=== PATIENT | male | born 1960 | race Two or more races ===

== ENCOUNTER 2024-02-19 04:49 | Emergency (ER) | payer MEDICAID ==
[~2024-02-19] VITALS: Ht 162.6 cm; Wt 68.2 kg
[2024-02-19 06:45] VITALS: BP 154/93; PULSE 91; RESP 17; TEMP 97.9; O2SAT 93
[2024-02-19 07:22] LABS: Basophils # (auto) 0.1 10 ^3/uL (0-0.2); Basophils % (auto) 0.8 % (0.0-2.0); Eosinophils # (auto) 0 10 ^3/uL (0-0.8); Eosinophils % (auto) 0.3 % (0.0-7.0); Hematocrit 46.8 % (41.0-53.0); Hemoglobin 15.8 g/dL (13.5-17.5); Lymphocytes # (auto) 1.1 10 ^3/uL (0.4-5.4); Lymphocytes % (auto) 9.5 % (10.0-50.0); Mean Corpuscular Hemoglobin 29.6 pg (28.0-32.0); Mean Corpuscular Hgb Conc. 33.7 g/dL (32.0-36.0); Mean Corpuscular Volume 87.8 fL (80.0-100.0); Monocytes # (auto) 0.8 10 ^3/uL (0-1.3); Monocytes % (auto) 6.8 % (0.0-12.0); Neutrophils # (auto) 9.6 10 ^3/uL (1.6-8.6); Neutrophils % (auto) 82.6 % (37.0-80.0); Platelet Count (auto) 250 10^3/uL (140-450); Red Blood Cells 5.33 10^6/uL (4.5-5.90); White Blood Cell 11.7 10^3/uL (4.4-10.8)
[2024-02-19 07:31] LABS: Chloride 110 mmol/L (98-107); Potassium 4.4 mmol/L (3.5-5.1); Sodium 138 mmol/L (136-145)
[2024-02-19 07:32] LABS: Anion Gap 3 (5-15); Calcium 9.4 mg/dL (8.7-10.4); Carbon Dioxide 25 mmol/L (20-30)
[2024-02-19 07:37] LABS: BUN/Creatinine Ratio 11.6 (10.0-20.0); Blood Urea Nitrogen 16 mg/dL (9-23); Glucose 109 mg/dL (74-106)
[2024-02-19 07:46] LABS: Urine Bacteria None Seen /hpf (None Seen)
[2024-02-19 08:07] LABS: Urine Blood 2+ /uL (Negative); Urine Clarity Clear (Clear); Urine Color Colorless (Yellow); Urine Protein, UAD Negative (Negative); Urine Specific Gravity 1.011 (1.001-1.035); Urine Urobilinogen Normal (Negative); Urine WBC 1 /hpf (0 - 3); Urine pH 6.5 (5.0-9.0)
== END 2024-02-19 08:45 | disposition home or self-care (01) ==
LOC: ER 04:49
DX: R31.9 Hematuria, unspecified (principal); R35.0 Frequency of micturition; R10.31 Right lower quadrant pain
CPT/HCPCS: 36415; 80048; 81001; 85025

== ENCOUNTER 2024-09-24 14:51 | Inpatient (IN) | payer MEDICAID ==
[~2024-09-24] VITALS: Ht 162.6 cm; Wt 68.3 kg
--- NOTE | 2024-09-24 15:11 | ED.PDOC ---
History of Present Illness HPI Comments 63M presents to the ER w/ son and daughter w/ the pt being altered. The pt's siblings state that the pt's gf stated that the pt found some PCP and it spilt all over him. The son stated that the pt has been running around the streets since 5pm yesterday. PMHx of HTN. Social Hx of being Homeless. Denies chills, fever, N/V/D, SOB, CP or no other associated symptoms, modifiers, recent injuries or sick contacts at this time. Chief Complaint: ALOC Time Seen by MD: 15:00 Reviewed Notes: Nurses Notes, Medications, Allergies Allergies: Coded Allergies: NO KNOWN ALLERGIES (Unverified , 10/13/23) Information Source: Patient Mode of Arrival: Ambulatory Severity: Moderate Timing: Hours Duration: Since onset, Hours Prehospital treatment: None Past Medical History PAST MEDICAL HISTORY: HTN Surgical History: Denies all surgeries Family History Family History: Reviewed,noncontributory to illness, Unknown Social History Smoker: Non-Smoker Alcohol: Denies ETOH Use Drugs: Marijuana, Methamphetamine, Other Lives In: Homeless Unable to Obtain due to: Altered Mental Status All Other Systems: Reviewed and Negative Physical Exam General Appearance: Moderate Distress, Normal HEENT: Normal ENT Inspection, Pharynx Normal, TMs Normal Neck: Full Range of Motion, Non-Tender, Normal, Normal Inspection Respiratory: Chest Non-Tender, Lungs Clear, No Accessory Muscle Use, No Respiratory Distress, Normal Breath Sounds Cardiovascular: No Edema, No JVD, No Murmur, No Gallop, Normal Peripheral Pulses, Regular Rate/Rhythm Breast Exam: Deferred Gastrointestinal: No Organomegaly, Non Tender, No Pulsatile Mass, Normal Bowel Sounds, Soft Genitalia: Deferred Pelvic: Deferred Rectal: Deferred Extremities: No calf tenderness, No pedal edema Musculoskeletal : Apperance: Normal Neurologic: 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 Was a procedure done?: No Differential Dx Considerations may include: Altered Electrolyte imbalance X-Ray, Labs, Meds, VS Vital Signs Date Time Temp Pulse Resp B/P (MAP) Pulse Ox O2 Delivery O2 Flow Rate FiO2 09/24/24 15:00 102.1 18 18 207/115 (145) 95 102.1 198/115 (142) Lab Test 09/24/24 15:05 Range/Units POC Glucose 121 H 70-106 mg/dl Patient disoriented. Blood pressure elevated. Has fever. Unable to get any history from the patient. He has not been taking any medication. Was given labetalol. Sepsis protocol. Establish intravenous access. Was given fluids. Was given Rocephin. Was given azithromycin. EKG reviewed does not show any acute changes. Time of 1ST Reevaluation: 15:30 Reevaluation 1ST: Unchanged Patient Education/Counseling: Diagnosis, Treatment, Prognosis Family Education/Counseling: No Family Present Departure 1 Departure Time of Disposition: 15:29 Impression: Primary Impression: Metabolic encephalopathy Additional Impression: Hypertensive emergency Disposition: ADMITTED INPATIENT Admit to: Med Surg Condition: Guarded Critical Care Note Critical Care Time?: Yes (90 min-critical care time only) Stability Stability form required: No Heart Score Heart Score: Heart Score Response (Comments) Value History Slightly Suspicious 0 EKG Normal 0 Age 45-64 1 Risk Factors 1 or 2 risk factors 1 Troponin Normal limit 0 Total 2 I personally scribed for ANGEL PRINGLE MD ([email or web address]) on 09/24/24 at 15:11. Electronically submitted by Darryl Hicks ([email or web address]). ANGEL PRINGLE MD Sep 24, 2024 15:11
--- NOTE | 2024-09-24 15:28 | DVH ---
EXAM: CT HEAD WITHOUT CONTRAST HISTORY: altered COMPARISON: CT HEAD WITHOUT CONTRAST on DOS: 10/13/23 TECHNIQUE: Axial images of the head were obtained and reformatted in coronal and sagittal planes. All CT scans at this medical facility are performed using dose modulation techniques as appropriate t o a performed exam including the following: Automated exposure control was utilized; adjustment of th e MA and/or KV according to patient size; and use of iterative reconstruction technique. CT Dose: CTDI volume is 61 mGy. Dose-length product is 1205 mGy*cm FINDINGS: There is no evidence of acute intracranial hemorrhage, mass, mass effect midline shift. There is no h ydrocephalus or extra-axial fluid collection. Ghosh-white matter differentiation is maintained. There is a retention cyst in the right maxillary sinus. The remaining visualized paranasal sinuses an d mastoid air cells are clear. The calvarium is intact. IMPRESSION: 1. No acute intracranial process. HS:Y
--- NOTE | 2024-09-24 15:33 | DVH ---
EXAM: XY CHEST PORTABLE TECHNIQUE: Single frontal chest radiograph CLINICAL HISTORY: sob COMPARISON: XY CHEST PORTABLE on DOS: 10/13/23 Findings/Impression: Frontal chest radiograph demonstrates no acute osseous or superficial soft tissue abnormalities. The trachea is midline. The cardiac silhouette and mediastinum are within normal limits. No pneumothorax, pleural effusions, or consolidations.
[2024-09-24 15:46] LABS: Basophils # (auto) 0.1 10 ^3/uL (0-0.2); Eosinophils # (auto) 0.1 10 ^3/uL (0-0.8); Eosinophils % (auto) 1.4 % (0.0-7.0); Hematocrit 49.9 % (41.0-53.0); Hemoglobin 16.7 g/dL (13.5-17.5); Lymphocytes % (auto) 20.2 % (10.0-50.0); Mean Corpuscular Hemoglobin 29.9 pg (28.0-32.0); Mean Corpuscular Hgb Conc. 33.5 g/dL (32.0-36.0); Mean Corpuscular Volume 89.1 fL (80.0-100.0); Monocytes # (auto) 0.8 10 ^3/uL (0-1.3); Neutrophils # (auto) 6.8 10 ^3/uL (1.6-8.6); Neutrophils % (auto) 69.4 % (37.0-80.0); Nucleated Red Blood Cells % 0.2 %; Platelet Count (auto) 266 10^3/uL (140-450); Red Cell Distribution Width 13.7 % (11.8-14.3); White Blood Cell 9.8 10^3/uL (4.4-10.8)
[2024-09-24 15:48] LABS: Potassium 4.5 mmol/L (3.5-5.1); Sodium 143 mmol/L (136-145)
[2024-09-24] MEDS: LORazepam 2MG/ML-1ML VIAL IM ONE (15:48)
[2024-09-24 15:49] LABS: Anion Gap 9 (5-15); Carbon Dioxide 23 mmol/L (20-31)
[2024-09-24 15:55] LABS: BUN/Creatinine Ratio 15.2 (10.0-20.0); Blood Alcohol 3.8 mg/dL (<10)
[2024-09-24 16:03] LABS: Blood Urea Nitrogen 23 mg/dL (9-23); Glucose 112 mg/dL (74-106)
[2024-09-24 16:04] LABS: Chloride 111 mmol/L (98-107)
[2024-09-24] MEDS: LORazepam 2MG/ML-1ML VIAL ONE ×2 (16:10→22:27)
[2024-09-24 17:39] LABS: Lactic Acid w/Reflex 3.1 mmol/L (0.4-2.0)
[2024-09-24] MEDS: ACETAMINOPHEN 325 MG TAB PO ONE (17:41)
[2024-09-24 17:50] VITALS: PULSE 102; RESP 20; O2SAT 95
[2024-09-24] MEDS: cefTRIAXone 1GM/50ML D5W 50 ML IV ONE (18:04)
[2024-09-24] MEDS: AZITHROMYCIN 500MG/ 250ML 250 ML IV ONE (18:05)
[2024-09-24] MEDS: LABETALOL HCL 20 MG/4 ML VL IV ONE (18:05)
[2024-09-24] MEDS: ACETAMINOPHEN IV 1000 MG/100ML (10MG/ML) IV ONE (18:05)
[2024-09-24] MEDS: SODIUM CHLORIDE 0.9% 1,000 ML IV ONE ×2 (18:06→23:03)
[2024-09-24] MEDS: SODIUM CHLORIDE 0.9% 1,000 ML IVB ONE (18:06)
[2024-09-24 21:35] LABS: Urine Bacteria None Seen /hpf (None Seen)
[2024-09-24 21:53] LABS: Urine Blood Negative /uL (Negative); Urine Clarity Clear (Clear); Urine Color Yellow (Yellow); Urine Hyaline Cast FEW /lpf (0 - 2); Urine Mucus FEW (None Seen); Urine Protein, UAD TRACE (Negative); Urine Specific Gravity 1.025 (1.001-1.035); Urine Sperm PRESENT /hpf (None Seen); Urine Squamous Epithelial Cell None Seen /hpf (<5); Urine Urobilinogen Normal (Negative); Urine WBC 1 /HPF (0-3)
[2024-09-24 22:08] LABS: Amphetamine Screen, Urine Pos (NEGATIVE); Barbiturate Scree,Urine Neg (NEGATIVE); Benzodiazephine Screen, Urine Neg (NEGATIVE); Cannabinoid Screen, Urine Neg (NEGATIVE); Cocaine Screen, Urine Neg (NEGATIVE); Opiate Scree,Urine Neg (NEGATIVE); Phencyclidine Screen, Urine Pos (NEGATIVE)
[2024-09-24] MEDS ORDERED: LORazepam 2MG/ML-1ML VIAL IV SCH (22:30)
[2024-09-24] MEDS ORDERED: ONDANSETRON HCL 4 MG/2 ML VIAL IV PRN (22:45)
--- NOTE | 2024-09-24 22:45 | DVHHPRES ---
History of Present Illness Resident Creating Document: TIERA PABLO RESDIENT History of Present Illness This is a 63-year-old old male with past medical history significant of hypertension and multisubstance abuse brought to the hospital due to altered mental status. Per patient's son the patient has been running around the street since yesterday's and has found some PCP with him. Upon ER arrival the patient was aggressive/agitated which was given Ativan but due to uncontrolled agitation the patient was put on physical restrained. Previous hospitalization: The patient was previously admitted on October 2023 due to fentanyl overdose PMHx: Hypertension and polysubstance drug abuse PSHx: Not significant Family history: Not significant Social history: Homeless, smokes marijuana, methamphetamine and PCP Home medication: Amlodipine, trazodone Allergic history: No known allergy Review of Systems Review of Systems Due to altered mental status of the patient, review of systems could not obtain. Allergies: Coded Allergies: NO KNOWN ALLERGIES (Unverified , 10/13/23) Medications Current Medications Medications Dose Ordered Sig/Jeremías Route Start Time Stop Time Status Last Admin Dose Admin Lorazepam 1 mg Q4HPRN IV 09/24/24 22:30 UNV Exam Vital Signs Vital Signs Date Time Temp Pulse Resp B/P (MAP) Pulse Ox O2 Delivery O2 Flow Rate FiO2 09/24/24 22:06 100 09/24/24 19:30 Room Air* 0 21 09/24/24 19:30 98.8 11 116/80 (92) 95 98.8 Exam General Appearance: Patient was seen at the bedside, due to given Ativan the patient was sleeping. HEENT: Atraumatic, PERRLA, EOMI, Mucous membrane moist/pink Respiratory: Clear to auscultation, Normal air movement Cardiovascular: Regular rate, Normal S1, Normal S2, No murmurs, no chest wall tenderness Abdominal: Normal bowel sounds, Soft, No tenderness, No hepatospenomegaly, No masses Extremities: No clubbing, No cyanosis, No edema, Normal pulses, No tenderness/swelling Skin: No rashes, No breakdown, No significant lesion Labs/Xrays Labs Test 09/24/24 21:55 09/24/24 21:20 09/24/24 15:25 09/24/24 15:05 Range/Units Lactic Acid Level 0.8 0.4-2.0 mmol/L Urine Color Yellow Yellow Urine Clarity Clear Clear Urine pH 5.0 5.0-9.0 Urine Specific [place] 1.025 1.001-1.035 Urine Protein Trace H Negative Urine Ketones Trace Negative Urine Blood Negative Negative /uL Urine Nitrite Negative Negative Urine Bilirubin Negative Negative Urine Urobilinogen Normal Negative mg/dL Urine Leukocyte Esterase Negative Negative /uL Urine RBC 1 0 - 3 /hpf Urine Microscopic WBC 1 0-3 /HPF Urine Squamous Epithelial Cells None seen <5 /hpf Urine Bacteria None seen None Seen /hpf Urine Hyaline Casts Few 0 - 2 /lpf Urine Mucus Few None Seen Urine Sperm Present None Seen /hpf Urine Glucose Normal Normal mg/dL Urine Opiates Screen Neg NEGATIVE Urine Fentanyl Screen Neg NEGATIVE Urine Barbiturates Screen Neg NEGATIVE Urine Phencyclidine Screen Pos NEGATIVE Urine Amphetamines Screen Pos NEGATIVE Urine Benzodiazepines Screen Neg NEGATIVE Urine Cocaine Screen Neg NEGATIVE Urine Cannabinoids Screen Neg NEGATIVE White Blood Count 9.8 4.4-10.8 10^3/uL Red Blood Count 5.60 4.5-5.90 10^6/uL Hemoglobin 16.7 13.5-17.5 g/dL Hematocrit 49.9 41.0-53.0 % Mean Corpuscular Volume 89.1 80.0-100.0 fL Mean Corpuscular Hemoglobin 29.9 28.0-32.0 pg Mean Corpuscular Hemoglobin Concent 33.5 32.0-36.0 g/dL Red Cell Distribution Width 13.7 11.8-14.3 % Platelet Count 266 140-450 10^3/uL Mean Platelet Volume 8.1 6.9-10.8 fL Neutrophils (%) (Auto) 69.4 37.0-80.0 % Lymphocytes (%) (Auto) 20.2 10.0-50.0 % Monocytes (%) (Auto) 8.0 0.0-12.0 % Eosinophils (%) (Auto) 1.4 0.0-7.0 % Basophils (%) (Auto) 1.0 0.0-2.0 % Neutrophils # (Auto) 6.8 1.6-8.6 10 ^3/uL Lymphocytes # (Auto) 2.0 0.4-5.4 10 ^3/uL Monocytes # (Auto) 0.8 0-1.3 10 ^3/uL Eosinophils # (Auto) 0.1 0-0.8 10 ^3/uL Basophils # (Auto) 0.1 0-0.2 10 ^3/uL Nucleated Red Blood Cells 0.2 % Sodium Level 143 136-145 mmol/L Potassium Level 4.5 3.5-5.1 mmol/L Chloride Level 111 H 98-107 mmol/L Carbon Dioxide Level 23 20-31 mmol/L Anion Gap 9 5-15 Blood Urea Nitrogen 23 9-23 mg/dL Creatinine 1.51 H 0.700-1.30 mg/dL Glomerular Filtration Rate Calc 52 >90 mL/min BUN/Creatinine Ratio 15.2 10.0-20.0 Serum Glucose 112 H 74-106 mg/dL Calcium Level 10.0 8.7-10.4 mg/dL Troponin I High Sensitivity 16 </=54 ng/L Plasma/Serum Blood Alcohol 3.8 <10 mg/dL POC Glucose 121 H 70-106 mg/dl Assessment/Plan Assessment/Plan Acute toxic encephalopathy, likely due to polysubstance drug abuse Polysubstance drug abuse methamphetamine/phencyclidine Hypertensive urgency, likely due to above Rhabdomyolysis, likely due to above DELMA, likely due to rhabdomyolysis/VMN Head CT scan shows no acute intracranial abnormalities UDS shows methamphetamine and phencyclidine positive IV fluid Ativan p.r.n. Hydralazine Telemetry CPK trend DIET: NPO DVT PROPHYLAXIS: Lovenox GI PROPHYLAXIS:: Protonix DISPOSITION: Telemetry Patient's status and plan discussed with the nurse, tried multiple times to reach out to the patient's son and daughter, but could not. Case discussed with Dr. Miles. Plan discussed with: Patient, Other (RN) My Orders Orders - TIERA PABLO RESDITRINITY Procedure Category Date Status Time Electrocardigram EKG 09/24/24 Logged 21:39 Electrocardigram EKG 09/24/24 Logged 22:39 Lorazepam 2mg/Ml Inj PHA 09/24/24 Pending (Ativan Inj) 22:30 Admit ADMIT 09/24/24 Verified 22:35 Code Status CODE 09/24/24 Verified 22:35 Vital Signs MEMO 09/24/24 Verified 22:35 Review Orders With MEMO 09/24/24 Verified Adm. 22:35 Npo (Nothing By DIET 09/25/24 Verified Mouth) Diet Breakfast Notify Md Of Changes [facility] 09/24/24 Verified From Base 22:35 Advance Directive MEMO 09/24/24 Verified 22:35 Echo 2d Mode Cardiac US 09/24/24 Verified DOP 22:35 Lipid Panel LAB 09/24/24 Verified 22:35 Patient Condition ORDERS 09/24/24 Verified 22:35 Allergies [facility] 09/24/24 Verified 22:35 Ondansetron Hcl PHA 09/24/24 Verified (Zofran) 22:45 Hemoglobin A1c LAB 09/24/24 Verified 22:35 Lovenox 40mg PHA 09/25/24 Verified 10:00 Stat Ekg For Chest [facility] 09/24/24 Verified Pain 22:35 Notify Md Of Changes [facility] 09/24/24 Verified From Base 22:35 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 Utility Worker For [facility] 09/24/24 Verified 24 Hours 22:35 Emergency Dysrhythmia [facility] 09/24/24 Verified Protocol 22:35 Rhythm Strips Once [facility] 09/24/24 Verified Every Shift 22:35 Thyroid Stimulating LAB 09/24/24 Verified Hormone 22:35 Vitamin D, 25-Hydroxy LAB 09/24/24 Verified 22:35 Vitamin B12 LAB 09/24/24 Verified 22:35 Ammonia LAB 09/24/24 Verified 22:35 Hiv 1&2 Antibody LAB 09/24/24 Verified 22:35 PTPTT LAB 09/24/24 Verified 22:35 Rapid Influenza A&B LAB 09/24/24 Verified 22:35 Creatine Kinase LAB 09/24/24 Verified 22:35 Urine Sodium LAB 09/24/24 Verified 22:35 Urine LAB 09/24/24 Verified Protein/Creatinine Urine Creatinine LAB 09/24/24 Verified 22:35 Covid19 Antigen Lina LAB 09/24/24 Verified Basic Metabolic Panel LAB 09/25/24 Verified 04:00 Comprehensive LAB 09/24/24 Verified Metabolic Panel 22:35 NS PHA 09/24/24 Verified 22:45 Amlodipine Tablet PHA 09/24/24 Verified (Norvasc Tablet) 22:45 Amlodipine Tablet PHA 09/25/24 Verified (Norvasc Tablet) 10:00 Date of Service: Sep 24, 2024 Billing Provider: CALEB MILES MD Common Visit Codes: [id number] INP/OBS CARE (HIGH) TIERA PABLO RESDIENT Sep 24, 2024 22:45 CALEB MILES MD Sep 25, 2024 11:31
[2024-09-24] MEDS: amLODIPine BESYLATE 5 MG TAB PO ONE (23:02)
[2024-09-24 23:37] LABS: Protein, Urine 33.4 mg/dL (1-14)
[2024-09-24 23:39] LABS: Creatinine, Urine 204.59 mg/dL (30.0-125.0); Urine Protein/Creatinine Ratio 0.16
[2024-09-24 23:39] LABS: INR 1.03 (0.9-1.15); Partial Thromboplastin Time 26.1 SEC (24.5-34.5); Prothrombin Time 10.9 sec (9.3-11.8)
[2024-09-24 23:40] LABS: Triglycerides 63 mg/dL (< 150)
[2024-09-24 23:42] LABS: Alanine Aminotransferase 32 U/L (7-40); Albumin 4.2 g/dL (3.2-4.8); Alkaline Phosphatase 112 U/L (46-116); Anion Gap 7 (5-15); Aspartate Aminotransferase 43 U/L (13-40); BUN/Creatinine Ratio 16.7 (10.0-20.0); Bilirubin, Total 0.6 mg/dL (0.2-1.0); Blood Urea Nitrogen 22 mg/dL (9-23); Calcium 8.8 mg/dL (8.7-10.4); Carbon Dioxide 21 mmol/L (20-31); Chloride 116 mmol/L (98-107); Cholesterol 174 mg/dL (< 200); Glucose 93 mg/dL (74-106); LDL Cholesterol 135 mg/dL (< 100); Potassium 4.3 mmol/L (3.5-5.1); Sodium 144 mmol/L (136-145); Total Protein 6.9 g/dL (5.7-8.2)
[2024-09-24 23:47] LABS: HDL Cholesterol 32 mg/dL (40-59)
[2024-09-24 23:54] LABS: Creatine Kinase IFCC 1971 U/L (46-171)
[2024-09-25] MEDS: LORazepam 2MG/ML-1ML VIAL IV PRN
--- NOTE | 2024-09-25 02:11 | ECG ---
[facility] Test Date: 2024-09-24 Test Time: 22:05:42 Pat Name: TRAV BLANK Department: ED Room: [address] [place] [address] Gender: M Perianesthesia Nurse: BENEDICTO : [id number] Requested By: TIERA PABLO Order Number: [id number] Reading MD: Isacc Mauricio Measurements Intervals [place] Rate: 100 P: 68 NE: 141 QRS: 77 QRSD: 84 T: 38 QT: 364 QTc: 470 Interpretive Statements Sinus tachycardia Atrial premature complex Right atrial enlargement Abnormal R-wave progression, early transition Artifact in lead(s) II,III,aVF,V3,V6 Electronically Signed On 09-25-2024 14:12:39 PDT by Isacc Mauricio Please click the below link to view image of tracing.
[2024-09-25] MEDS: hydrALAZINE HCL 20 MG/ML VL IV ONE (04:15)
[2024-09-25 06:47] LABS: Anion Gap 9 (5-15); Potassium 4.1 mmol/L (3.5-5.1); Sodium 145 mmol/L (136-145)
[2024-09-25 06:48] LABS: Calcium 8.4 mg/dL (8.7-10.4); Carbon Dioxide 20 mmol/L (20-31); Chloride 116 mmol/L (98-107)
[2024-09-25 06:53] LABS: BUN/Creatinine Ratio 16.3 (10.0-20.0); Blood Urea Nitrogen 17 mg/dL (9-23)
[2024-09-25 06:55] LABS: Glucose 71 mg/dL (74-106); Uric Acid 11.4 mg/dL (3.7-9.2)
[2024-09-25 07:14] LABS: Creatine Kinase IFCC 3231 U/L (46-171)
[2024-09-25 08:00] VITALS: PULSE 98; RESP 20; O2SAT 97
[2024-09-25] MEDS: amLODIPine BESYLATE 5 MG TAB PO SCH (10:00)
[2024-09-25] MEDS: SODIUM CHLORIDE 0.9% 1,000 ML IV SCH (11:28)
[2024-09-25] MEDS: ENOXAPARIN SOD 40 MG/0.4 ML SYRINGE SC SCH (11:32)
[2024-09-25 11:47] LABS: Free T3 2.53 pg/mL (2.3-4.2)
[2024-09-25 11:52] LABS: Free T4 (Free Thyroxine) 1.11 ng/dL (0.89-1.76)
--- NOTE | 2024-09-25 12:02 | DVHPNRES ---
Progress Note Date Seen: Sep 25, 2024 Resident Creating Document: BENI CHO RESIDENT Subjective Review of Systems This is a 63-year-old old male with past medical history significant of hypertension and polysubstance abuse brought to the hospital due to altered mental status. Per patient's son the patient has been running around the street since yesterday's and has found some PCP with him. Upon ER arrival the patient was aggressive/agitated which was given Ativan but due to uncontrolled agitation the patient was put on physical restrained. Patient was seen and examined on the bedside. He is alert oriented X 0 and agitated. No active complaint Review of system could not be assessed because of the patient's mental status. Objective vital signs Vital Sign Date Time Temp Pulse Resp B/P (MAP) Pulse Ox O2 Delivery O2 Flow Rate FiO2 09/25/24 10:00 97.6 90 13 138/75 (96) 96 97.6 09/25/24 08:00 Room Air* 0 21 Total Intake and Output 09/24/24 09/24/24 09/25/24 15:00 23:00 07:00 Intake Total 1450 ml 1000 ml Output Total 1000 ml Balance 1450 ml 0 ml medications Current Medications Medications Dose Ordered Sig/Jeremías Route Start Time Stop Time Status Last Admin Dose Admin Ondansetron HCl 4 mg Q4HP PRN IV 09/24/24 22:45 Enoxaparin Sodium 40 mg DAILY SC 09/25/24 10:00 09/25/24 11:32 40 MG Amlodipine Besylate 10 mg DAILY PO 09/25/24 10:00 Lorazepam 1 mg Q4HPRN PRN IV 09/25/24 00:15 09/25/24 08:10 1 MG Hydralazine HCl 10 mg Q6HP PRN IV 09/25/24 10:00 Sodium Chloride 1,000 ml @ 150 mls/hr Q6H40M IV 09/25/24 11:15 09/25/24 11:28 150 MLS/HR Examination Physical examination: General Appearance: Alert, Oriented X 0, sleeping HEENT: Atraumatic, PERRLA, EOMI, Mucous membrane moist/pink Respiratory: Clear to auscultation, Normal air movement Cardiovascular: Regular rate, Normal S1, Normal S2, No murmurs, no chest wall tenderness Abdominal: Normal bowel sounds, Soft, No tenderness, No hepatospenomegaly, No masses Extremities: No clubbing, No cyanosis, No edema, Normal pulses, No tenderness/swelling Skin: No rashes, No breakdown, No significant lesion Neuro: Strength at 5/5 X4 ext, Normal tone, Sensation intact, Cranial nerves 3- 12 NL, Reflexes 2+ Psych/Mental Status: Mental status NL, Mood NL laboratory and microbiology Laboratory Tests 09/25/24 06:06 09/24/24 15:25 Test 09/25/24 06:06 Range/Units Serum Glucose 71 L 74-106 mg/dL Problem List/Assessment/Plan Problem List/Assessment/Plan Assessment and plan: # SIRS with acute end organ damage # Acute toxic encephalopathy, likely due to polysubstance drug abuse # Polysubstance drug abuse methamphetamine/phencyclidine # Hypertensive urgency, likely due to above # Rhabdomyolysis, likely due to above # DELMA, likely due to rhabdomyolysis/VMN # Rule out encephalopathy - Head CT scan revealed no acute intracranial abnormalities. - UDS positive for methamphetamine and phencyclidine - Patient got 3 L IV bolus followed by - IV normal saline at 150 mL/hours - IV Ativan 1 mg q.4 p.r.n. - IV hydralazine 10 mg q.6 p.r.n. - Consulted IR for possible LP - IV Zofran 4 mg Q 8 p.r.n. DIET: NPO DVT PROPHYLAXIS: Lovenox GI PROPHYLAXIS:: Protonix DISPOSITION: Telemetry Goal of care could not be discussed as patient is A&O times [address] Mccarty My Orders My Orders Orders - BENI CHO Procedure Category Date Status Time Hydralazine Injection PHA 09/25/24 In Process (Apresoline Inject 10:00 Sodium Chloride 0.9% PHA 09/25/24 In Process 11:15 BENI CHO RESIDENT Sep 25, 2024 12:02
[2024-09-25] MEDS: SOD CHL 0.45% 1,000 ML IV SCH (14:00)
--- NOTE | 2024-09-25 14:44 | DVHPN2 ---
Subjective Patient denies any symptoms. Reviewed: Care Plan, H&P Changes from previous H/P or p: No Changes Objective Vitals Vital Signs Date Time Temp Pulse Resp B/P (MAP) Pulse Ox O2 Delivery O2 Flow Rate FiO2 09/25/24 14:00 94 13 119/67 (84) 96 09/25/24 12:00 97.7 97.7 09/25/24 08:00 Room Air* 0 21 Intake/Output Intake and Output 09/25/24 07:00 Intake Total 2450 ml Output Total 1000 ml Balance 1450 ml Intake IV Total 2450 ml Output Urine Total 1000 ml General Appearance: Alert, No acute distress HEENT: Atraumatic, PERRLA Lungs: Clear to auscultation, Normal air movement Cardiovascular: Normal S1, Normal S2 Abdomen: Normal bowel sounds, Soft, No tenderness Genitourinary: No Apparent Abnormalities Musculoskeletal: Normal sensory function, Normal motor function Neuro: Normal gait, Normal speech Psych/Mental Status: Mental status NL, Mood NL Medications Current Medications Medications Dose Ordered Sig/Jeremías Route Start Time Stop Time Status Last Admin Dose Admin Ondansetron HCl 4 mg Q4HP PRN IV 09/24/24 22:45 Enoxaparin Sodium 40 mg DAILY SC 09/25/24 10:00 09/25/24 11:32 40 MG Amlodipine Besylate 10 mg DAILY PO 09/25/24 10:00 Lorazepam 1 mg Q4HPRN PRN IV 09/25/24 00:15 09/25/24 08:10 1 MG Hydralazine HCl 10 mg Q6HP PRN IV 09/25/24 10:00 Folic Acid 1 mg/ Multivitamins 10 ml/Magnesium Sulfate 8 meq/ Thiamine HCl 100 mg/Dextrose 1,013.2 ml @ 125.001 mls/hr DAILY@1800 INJ 09/25/24 18:00 Sodium Chloride 1,000 ml @ 100 mls/hr Q10H IV 09/25/24 14:00 Laboratory Results Laboratory Tests 09/24/24 15:25 09/25/24 06:06 Chemistry Test 09/24/24 15:09/24/24 23:00 09/25/24 06:06 Calcium Level 10.0 mg/dL (8.7-10.4) 8.8 mg/dL (8.7-10.4) 8.4 mg/dL (8.7-10.4) L Albumin 4.2 g/dL (3.2-4.8) Total Protein 6.9 g/dL (5.7-8.2) Coagulation Test 09/24/24 23:00 Prothrombin Time 10.9 sec (9.3-11.8) Prothrombin Time INR 1.03 (0.9-1.15) Activated Partial Thromboplast Time 26.1 SEC (24.5-34.5) Lipid panel Test 09/24/24 23:00 Cholesterol Level 174 mg/dL (< 200) HDL Cholesterol 32 mg/dL (40-59) L Triglycerides Level 63 mg/dL (< 150) Cardiac Markers Test 09/25/24 06:06 B-Type Natriuretic Peptide 59.88 pg/mL (0-100) LFT Test 09/24/24 23:00 Alanine Aminotransferase (ALT) 32 U/L (7-40) Alkaline Phosphatase 112 U/L (46-116) Aspartate Amino Transferase (AST) 43 U/L (13-40) H Total Bilirubin 0.6 mg/dL (0.2-1.0) HgA1c, TSH Test 09/24/24 23:00 Hemoglobin A1c 5.1 % A1C (<5.7) Thyroid Stimulating Hormone (TSH) 0.42 uIU/mL (0.55-4.78) L Urinalysis Test 09/24/24 21:20 Urine Color Yellow (Yellow) Urine Clarity Clear (Clear) Urine pH 5.0 (5.0-9.0) Urine Specific [place] 1.025 (1.001-1.035) Urine Protein Trace (Negative) H Urine Ketones Trace (Negative) Urine Blood Negative /uL (Negative) Urine Nitrite Negative (Negative) Urine Bilirubin Negative (Negative) Urine Urobilinogen Normal mg/dL (Negative) Urine Leukocyte Esterase Negative /uL (Negative) Urine RBC 1 /hpf (0 - 3) Urine Microscopic WBC 1 /HPF (0-3) Urine Squamous Epithelial Cells None seen /hpf (<5) Urine Bacteria None seen /hpf (None Seen) Urine Hyaline Casts Few /lpf (0 - 2) Urine Mucus Few (None Seen) Urine Sperm Present /hpf (None Seen) Urine Creatinine 204.59 mg/dL (30.0-125.0) H Urine Protein/Creatinine Ratio 0.16 Urine Sodium 86 mmol/L (40-220) Urine Glucose Normal mg/dL (Normal) Urine Total Protein 33.4 mg/dL (1-14) H Labs and/or images reviewed: Labs reviewed by me, Image(s) reviewed by me Assessment/Plan Assessment/Plan Impression: -Toxic Metabolic encephalopathy -Polysubstance abuse: Amphetamines and PCP -Rhabdomyolysis -Hypertensive urgency Plan: -Change to .45NS -Banana Bag -Antihypertensives -PRN Benzodiazepines -Repeat labs in AM. Total time spent with patient: 35min Plan discussed with: Patient, Other (RN) My Orders Orders - BHARTI LEVINE NP Procedure Category Date Status Time Folic Acid... PHA 09/25/24 In Process 18:00 Creatine Kinase LAB 09/26/24 Verified 04:00 Regular Diet DIET 09/25/24 Transmitted Dinner Sod Chl 0.45% (Sodium PHA 09/25/24 In Process Chloride 0.45% Via 14:00 Basic Metabolic Panel LAB 09/26/24 Verified 04:00 Date of Service: Sep 25, 2024 Billing Provider: BHARTI LEVINE NP Common Visit Codes: [id number] INP/OBS CARE(HIGH) BHARTI LEVINE NP Sep 25, 2024 14:44
--- NOTE | 2024-09-25 15:57 | DVHSR ---
APPROVED REPORT EXAM: LIMITED Two-dimensional and M-mode echocardiogram with Doppler and color Doppler. Blood Pressure: 147/90 mmHg INDICATION Chest Pain RISK FACTORS Height: 5' 4", Weight: 140 DIMENSIONS LVDd3.9 (3.8-5.7cm)LA (2D)3.1 (1.9-4.0cm)Aortic Root3.0 (2.0-3.7cm) LVDs2.8 (2.5-4.0cm)LA (MM) (1.9-4.0cm)Aortic Cusp Exc1.5 (1.5-2.0cm) EF (%) 55.0 (55-70%)Rt. Atrium4.0 (1.9-4.0cm)Asc. Aorta cm IVSd1.2 (0.7-1.1cm)RV (D) (1.8-2.4cm) PWd1.2 (0.7-1.1cm) Mitral Valve MitralMitral Stenosis E wave0.60m/sMV Mean GR.mmHg A wave0.80m/sMV Peak GR.mmHg E/A ratio0.82D MVAcm2 Aortic Valve Aortic ValveAortic Stenosis V10.90m/Salvador Mean GR.4mmHg V21.20m/[place] Peak GR.6mmHg LVOT Diameter2.4 (1.8-2.4cm)Doppler AVA3.39cm2 Other Information Quality : Technically LimitedRhythm : Technically limited study due to body habitus and patient moving. Conclusion lvef 55-60% by visual estimate rv not well seen normal atria no severe valve abnormalities noted
[2024-09-25] MEDS: FOLIC ACID 1 MG, MULTIPLE VITAMIN 10 ML, MAGNESIUM SULF SDV 50% 8 MEQ, THIAMINE INJ 100... INJ SCH (18:00)
[2024-09-25 19:55] VITALS: PULSE 99; RESP 14; O2SAT 95
[2024-09-25 21:56] LABS: Rapid Influenza A Negative (Negative); Rapid Influenza B Negative (Negative)
[2024-09-25 22:20] LABS: COVID19 ANTIGEN SOFIA FIA NEGATIVE (NEGATIVE)
[2024-09-25] MEDS: D5W/LACTATED RINGERS 1,000 ML IV SCH (23:34)
[2024-09-26 00:04] VITALS: BP 132/84; PULSE 89; PULSE 91; RESP 20; TEMP 97.4; O2SAT 99
[2024-09-26 04:58] VITALS: BP 124/70; PULSE 91; RESP 17; TEMP 97.5; O2SAT 94
[2024-09-26 06:50] LABS: Anion Gap 7 (5-15); Carbon Dioxide 23 mmol/L (20-31)
[2024-09-26 06:52] LABS: Calcium 8.4 mg/dL (8.7-10.4); Chloride 115 mmol/L (98-107); Sodium 145 mmol/L (136-145)
[2024-09-26 06:55] LABS: BUN/Creatinine Ratio 19.1 (10.0-20.0); Blood Urea Nitrogen 18 mg/dL (9-23); Glucose 75 mg/dL (74-106)
[2024-09-26 07:08] LABS: Creatine Kinase IFCC 2619 U/L (46-171)
[2024-09-26 08:00] VITALS: PULSE 106
--- NOTE | 2024-09-26 11:15 | DVHPN2 ---
Subjective The patient is seen and examined at bedside. The patient is still very confused today. Reviewed: Care Plan, H&P Changes from previous H/P or p: No Changes Objective Vitals Vital Signs Date Time Temp Pulse Resp B/P (MAP) Pulse Ox O2 Delivery O2 Flow Rate FiO2 09/26/24 04:58 97.5 91 17 124/70 (88) 94 97.5 09/26/24 00:04 Room Air* 0 21 Intake/Output Intake and Output 09/26/24 06:59 Intake Total 300 ml Output Total 470 ml Balance -170 ml Intake Oral 0 ml IV Total 300 ml Output Urine Total 470 ml General Appearance: Alert, No acute distress HEENT: Atraumatic, PERRLA Lungs: Clear to auscultation, Normal air movement Cardiovascular: Normal S1, Normal S2 Abdomen: Normal bowel sounds, Soft, No tenderness Genitourinary: No Apparent Abnormalities Musculoskeletal: Normal sensory function, Normal motor function Neuro: Normal gait, Normal speech Psych/Mental Status: Mental status NL, Mood NL Medications Current Medications Medications Dose Ordered Sig/Jeremías Route Start Time Stop Time Status Last Admin Dose Admin Ondansetron HCl 4 mg Q4HP PRN IV 09/24/24 22:45 Enoxaparin Sodium 40 mg DAILY SC 09/25/24 10:00 09/26/24 09:16 40 MG Amlodipine Besylate 10 mg DAILY PO 09/25/24 10:00 Lorazepam 1 mg Q4HPRN PRN IV 09/25/24 00:15 09/26/24 09:17 1 MG Hydralazine HCl 10 mg Q6HP PRN IV 09/25/24 10:00 Folic Acid 1 mg/ Multivitamins 10 ml/Magnesium Sulfate 8 meq/ Thiamine HCl 100 mg/Dextrose 1,013.2 ml @ 125.001 mls/hr DAILY@1800 INJ 09/25/24 18:00 Sodium Chloride 1,000 ml @ 100 mls/hr Q10H IV 09/25/24 14:00 09/26/24 09:43 100 MLS/HR Dextrose/Lactated Ringer's 1,000 ml @ 100 mls/hr Q10H IV 09/25/24 23:15 09/25/24 23:34 100 MLS/HR Laboratory Results Laboratory Tests 09/24/24 15:25 09/26/24 04:39 Chemistry Test 09/26/24 04:39 Calcium Level 8.4 mg/dL (8.7-10.4) L Urinalysis Test 09/24/24 21:20 Urine Color Yellow (Yellow) Urine Clarity Clear (Clear) Urine pH 5.0 (5.0-9.0) Urine Specific [place] 1.025 (1.001-1.035) Urine Protein Trace (Negative) H Urine Ketones Trace (Negative) Urine Blood Negative /uL (Negative) Urine Nitrite Negative (Negative) Urine Bilirubin Negative (Negative) Urine Urobilinogen Normal mg/dL (Negative) Urine Leukocyte Esterase Negative /uL (Negative) Urine RBC 1 /hpf (0 - 3) Urine Microscopic WBC 1 /HPF (0-3) Urine Squamous Epithelial Cells None seen /hpf (<5) Urine Bacteria None seen /hpf (None Seen) Urine Hyaline Casts Few /lpf (0 - 2) Urine Mucus Few (None Seen) Urine Sperm Present /hpf (None Seen) Urine Creatinine 204.59 mg/dL (30.0-125.0) H Urine Protein/Creatinine Ratio 0.16 Urine Sodium 86 mmol/L (40-220) Urine Glucose Normal mg/dL (Normal) Urine Total Protein 33.4 mg/dL (1-14) H Microbiology Microbiology Date/Time Source Procedure Growth Status 09/24/24 16:44 Blood Blood Culture - Preliminary NO GROWTH AFTER 24 HOURS OF INCUBATION. Resulted Labs and/or images reviewed: Labs reviewed by me Assessment/Plan Assessment/Plan -Toxic Metabolic encephalopathy -Polysubstance abuse: Amphetamines and PCP -Rhabdomyolysis -Hypertensive urgency Plan: -Continuing had normal saline -continuing Banana Bag -continuing Antihypertensives -continuing PRN Benzodiazepines This medical document was created using an electronic medical record system with [employer] direct computerized dictation system. Although this document has been carefully reviewed, there may still be some phonetic and typographical errors. These areas are purely typographical due to imperfections of the software programs, and do not reflect any compromise in the patient's medical care. Plan discussed with: Patient Date of Service: Sep 26, 2024 Billing Provider: VANNESA LUZ MD Common Visit Codes: [id number] INP/OBS CARE(HIGH) VANNESA LUZ MD Sep 26, 2024 11:15
[2024-09-26 20:00] VITALS: PULSE 92; PULSE 98; RESP 18; O2SAT 96
[2024-09-26 21:00] VITALS: BP 152/90; PULSE 91; RESP 16; O2SAT 96
[2024-09-26] MEDS: hydrALAZINE HCL 20 MG/ML VL IV PRN (21:50)
[2024-09-27] VITALS (10 sets, daily range): BP systolic 116–169; BP diastolic 66–100; PULSE 87–110; RESP 15–19; TEMP 97.5–99.5; O2SAT 95–98
--- NOTE | 2024-09-27 23:04 | DVHPN2 ---
Subjective The patient is seen and examined at bedside. The patient is still very confused today. Reviewed: Care Plan, H&P Changes from previous H/P or p: No Changes Objective Vitals Vital Signs Date Time Temp Pulse Resp B/P (MAP) Pulse Ox O2 Delivery O2 Flow Rate FiO2 09/27/24 21:38 161/89 09/27/24 20:00 101 09/27/24 19:30 Room Air* 0 21 09/27/24 17:00 97.8 18 98 97.8 Intake/Output Intake and Output 09/27/24 07:00 Intake Total 1200 ml Output Total 3600 ml Balance -2400 ml Intake Oral 0 ml IV Total 1200 ml Output Urine Total 3600 ml General Appearance: Alert, No acute distress HEENT: Atraumatic, PERRLA Lungs: Clear to auscultation, Normal air movement Cardiovascular: Normal S1, Normal S2 Abdomen: Normal bowel sounds, Soft, No tenderness Genitourinary: No Apparent Abnormalities Musculoskeletal: Normal sensory function, Normal motor function Neuro: Normal gait, Normal speech Psych/Mental Status: Mental status NL, Mood NL Medications Current Medications Medications Dose Ordered Sig/Jeremías Route Start Time Stop Time Status Last Admin Dose Admin Ondansetron HCl 4 mg Q4HP PRN IV 09/24/24 22:45 Enoxaparin Sodium 40 mg DAILY SC 09/25/24 10:00 09/27/24 09:25 40 MG Amlodipine Besylate 10 mg DAILY PO 09/25/24 10:00 Lorazepam 1 mg Q4HPRN PRN IV 09/25/24 00:15 09/27/24 06:00 1 MG Hydralazine HCl 10 mg Q6HP PRN IV 09/25/24 10:00 09/27/24 21:38 10 MG Folic Acid 1 mg/ Multivitamins 10 ml/Magnesium Sulfate 8 meq/ Thiamine HCl 100 mg/Dextrose 1,013.2 ml @ 125.001 mls/hr DAILY@1800 INJ 09/25/24 18:00 09/27/24 18:16 125.001 MLS/HR Sodium Chloride 1,000 ml @ 100 mls/hr Q10H IV 09/25/24 14:00 09/27/24 17:50 100 MLS/HR Laboratory Results Laboratory Tests 09/24/24 15:25 09/26/24 04:39 Urinalysis Test 09/24/24 21:20 Urine Color Yellow (Yellow) Urine Clarity Clear (Clear) Urine pH 5.0 (5.0-9.0) Urine Specific [place] 1.025 (1.001-1.035) Urine Protein Trace (Negative) H Urine Ketones Trace (Negative) Urine Blood Negative /uL (Negative) Urine Nitrite Negative (Negative) Urine Bilirubin Negative (Negative) Urine Urobilinogen Normal mg/dL (Negative) Urine Leukocyte Esterase Negative /uL (Negative) Urine RBC 1 /hpf (0 - 3) Urine Microscopic WBC 1 /HPF (0-3) Urine Squamous Epithelial Cells None seen /hpf (<5) Urine Bacteria None seen /hpf (None Seen) Urine Hyaline Casts Few /lpf (0 - 2) Urine Mucus Few (None Seen) Urine Sperm Present /hpf (None Seen) Urine Creatinine 204.59 mg/dL (30.0-125.0) H Urine Protein/Creatinine Ratio 0.16 Urine Sodium 86 mmol/L (40-220) Urine Glucose Normal mg/dL (Normal) Urine Total Protein 33.4 mg/dL (1-14) H Microbiology Microbiology Date/Time Source Procedure Growth Status 09/24/24 16:44 Blood Blood Culture - Preliminary NO GROWTH AFTER 72 HOURS OF INCUBATION. Resulted Labs and/or images reviewed: Labs reviewed by me Assessment/Plan Assessment/Plan -Toxic Metabolic encephalopathy -Polysubstance abuse: Amphetamines and PCP -Rhabdomyolysis -Hypertensive urgency Plan: -Continuing had normal saline -continuing Banana Bag -continuing Antihypertensives -continuing PRN Benzodiazepines This medical document was created using an electronic medical record system with [employer] direct computerized dictation system. Although this document has been carefully reviewed, there may still be some phonetic and typographical errors. These areas are purely typographical due to imperfections of the software programs, and do not reflect any compromise in the patient's medical care. Plan discussed with: Other (RN) Date of Service: Sep 27, 2024 Billing Provider: VANNESA LUZ MD Common Visit Codes: [id number] INP/OBS CARE(HIGH) VANNESA LUZ MD Sep 27, 2024 23:04
[2024-09-28 08:00] VITALS: PULSE 105; PULSE 98; RESP 18; O2SAT 96
[2024-09-28 08:53] VITALS: BP 149/95; PULSE 105; RESP 18; TEMP 98.4; O2SAT 96
[2024-09-28 12:53] VITALS: BP 120/68; PULSE 106; RESP 17; TEMP 98.7; O2SAT 98
[2024-09-28 17:00] VITALS: BP 150/84; PULSE 113; RESP 17; TEMP 99.3; O2SAT 96
[2024-09-28 20:00] VITALS: PULSE 119
[2024-09-28 21:00] VITALS: BP 129/65; PULSE 20; RESP 19; TEMP 100.3; O2SAT 92
--- NOTE | 2024-09-28 22:47 | DVHPN2 ---
Subjective The patient is seen and examined at bedside. The patient is still very confused today. Reviewed: Care Plan, H&P Changes from previous H/P or p: No Changes Objective Vitals Vital Signs Date Time Temp Pulse Resp B/P (MAP) Pulse Ox O2 Delivery O2 Flow Rate FiO2 09/28/24 21:00 100.3 20 19 129/65 (86) 92 100.3 09/28/24 08:00 Room Air* 0 21 Intake/Output Intake and Output 09/28/24 07:00 Intake Total 1400 ml Output Total 790 ml Balance 610 ml Intake Oral 0 ml IV Total 1400 ml Output Urine Total 790 ml General Appearance: Alert, No acute distress HEENT: Atraumatic, PERRLA Lungs: Clear to auscultation, Normal air movement Cardiovascular: Normal S1, Normal S2 Abdomen: Normal bowel sounds, Soft, No tenderness Genitourinary: No Apparent Abnormalities Musculoskeletal: Normal sensory function, Normal motor function Neuro: Normal gait, Normal speech Psych/Mental Status: Mental status NL, Mood NL Medications Current Medications Medications Dose Ordered Sig/Jeremías Route Start Time Stop Time Status Last Admin Dose Admin Ondansetron HCl 4 mg Q4HP PRN IV 09/24/24 22:45 Enoxaparin Sodium 40 mg DAILY SC 09/25/24 10:00 09/28/24 08:42 40 MG Amlodipine Besylate 10 mg DAILY PO 09/25/24 10:00 09/28/24 08:42 10 MG Lorazepam 1 mg Q4HPRN PRN IV 09/25/24 00:15 09/27/24 06:00 1 MG Hydralazine HCl 10 mg Q6HP PRN IV 09/25/24 10:00 09/28/24 17:48 10 MG Folic Acid 1 mg/ Multivitamins 10 ml/Magnesium Sulfate 8 meq/ Thiamine HCl 100 mg/Dextrose 1,013.2 ml @ 125.001 mls/hr DAILY@1800 INJ 09/25/24 18:00 09/28/24 17:58 125.001 MLS/HR Sodium Chloride 1,000 ml @ 100 mls/hr Q10H IV 09/25/24 14:00 09/28/24 12:12 100 MLS/HR Laboratory Results Laboratory Tests 09/24/24 15:25 09/26/24 04:39 Urinalysis Test 09/24/24 21:20 Urine Color Yellow (Yellow) Urine Clarity Clear (Clear) Urine pH 5.0 (5.0-9.0) Urine Specific [place] 1.025 (1.001-1.035) Urine Protein Trace (Negative) H Urine Ketones Trace (Negative) Urine Blood Negative /uL (Negative) Urine Nitrite Negative (Negative) Urine Bilirubin Negative (Negative) Urine Urobilinogen Normal mg/dL (Negative) Urine Leukocyte Esterase Negative /uL (Negative) Urine RBC 1 /hpf (0 - 3) Urine Microscopic WBC 1 /HPF (0-3) Urine Squamous Epithelial Cells None seen /hpf (<5) Urine Bacteria None seen /hpf (None Seen) Urine Hyaline Casts Few /lpf (0 - 2) Urine Mucus Few (None Seen) Urine Sperm Present /hpf (None Seen) Urine Creatinine 204.59 mg/dL (30.0-125.0) H Urine Protein/Creatinine Ratio 0.16 Urine Sodium 86 mmol/L (40-220) Urine Glucose Normal mg/dL (Normal) Urine Total Protein 33.4 mg/dL (1-14) H Microbiology Microbiology Date/Time Source Procedure Growth Status 09/24/24 16:44 Blood Blood Culture - Preliminary NO GROWTH AFTER 72 HOURS OF INCUBATION. Resulted Labs and/or images reviewed: Labs reviewed by me Assessment/Plan Assessment/Plan -Toxic Metabolic encephalopathy -Polysubstance abuse: Amphetamines and PCP -Rhabdomyolysis -Hypertensive urgency Plan: -Continuing had normal saline -continuing Banana Bag -continuing Antihypertensives -continuing PRN Benzodiazepines This medical document was created using an electronic medical record system with [employer] direct computerized dictation system. Although this document has been carefully reviewed, there may still be some phonetic and typographical errors. These areas are purely typographical due to imperfections of the software programs, and do not reflect any compromise in the patient's medical care. Plan discussed with: Other (Rn) Date of Service: Sep 28, 2024 Billing Provider: VANNESA LUZ MD Common Visit Codes: [id number] INP/OBS CARE(HIGH) VANNESA LUZ MD Sep 28, 2024 22:47
[2024-09-29] VITALS (8 sets, daily range): BP systolic 97–146; BP diastolic 62–83; PULSE 93–112; RESP 14–19; TEMP 97.5–100.1; O2SAT 93–96
[2024-09-29] MEDS: ACETAMINOPHEN 325 MG TAB PO PRN (01:45)
--- NOTE | 2024-09-29 12:09 | DVHPN2 ---
Subjective The patient is seen and examined at bedside. The patient is still very confused today. [place] Reviewed: Care Plan, H&P Changes from previous H/P or p: No Changes Objective Vitals Vital Signs Date Time Temp Pulse Resp B/P (MAP) Pulse Ox O2 Delivery O2 Flow Rate FiO2 09/29/24 09:01 97/62 09/29/24 08:04 98.8 99 14 95 98.8 09/29/24 08:00 Room Air* 0 21 Intake/Output Intake and Output 09/29/24 07:00 Intake Total 2403.2 ml Output Total 1800 ml Balance 603.2 ml Intake Oral 1390 ml IV Total 1013.2 ml Output Urine Total 1800 ml General Appearance: Alert, No acute distress HEENT: Atraumatic, PERRLA Lungs: Clear to auscultation, Normal air movement Cardiovascular: Normal S1, Normal S2 Abdomen: Normal bowel sounds, Soft, No tenderness Genitourinary: No Apparent Abnormalities Musculoskeletal: Normal sensory function, Normal motor function Neuro: Normal gait, Normal speech Psych/Mental Status: Mental status NL, Mood NL Medications Current Medications Medications Dose Ordered Sig/Jeremías Route Start Time Stop Time Status Last Admin Dose Admin Ondansetron HCl 4 mg Q4HP PRN IV 09/24/24 22:45 Enoxaparin Sodium 40 mg DAILY SC 09/25/24 10:00 09/29/24 09:05 40 MG Amlodipine Besylate 10 mg DAILY PO 09/25/24 10:00 09/28/24 08:42 10 MG Lorazepam 1 mg Q4HPRN PRN IV 09/25/24 00:15 09/27/24 06:00 1 MG Hydralazine HCl 10 mg Q6HP PRN IV 09/25/24 10:00 09/28/24 17:48 10 MG Folic Acid 1 mg/ Multivitamins 10 ml/Magnesium Sulfate 8 meq/ Thiamine HCl 100 mg/Dextrose 1,013.2 ml @ 125.001 mls/hr DAILY@1800 INJ 09/25/24 18:00 09/28/24 17:58 125.001 MLS/HR Sodium Chloride 1,000 ml @ 100 mls/hr Q10H IV 09/25/24 14:00 09/29/24 09:10 100 MLS/HR Acetaminophen 650 mg Q4HP PRN PO 09/29/24 01:30 09/29/24 01:45 650 MG Laboratory Results Laboratory Tests 09/24/24 15:25 09/26/24 04:39 Urinalysis Test 09/24/24 21:20 Urine Color Yellow (Yellow) Urine Clarity Clear (Clear) Urine pH 5.0 (5.0-9.0) Urine Specific [place] 1.025 (1.001-1.035) Urine Protein Trace (Negative) H Urine Ketones Trace (Negative) Urine Blood Negative /uL (Negative) Urine Nitrite Negative (Negative) Urine Bilirubin Negative (Negative) Urine Urobilinogen Normal mg/dL (Negative) Urine Leukocyte Esterase Negative /uL (Negative) Urine RBC 1 /hpf (0 - 3) Urine Microscopic WBC 1 /HPF (0-3) Urine Squamous Epithelial Cells None seen /hpf (<5) Urine Bacteria None seen /hpf (None Seen) Urine Hyaline Casts Few /lpf (0 - 2) Urine Mucus Few (None Seen) Urine Sperm Present /hpf (None Seen) Urine Creatinine 204.59 mg/dL (30.0-125.0) H Urine Protein/Creatinine Ratio 0.16 Urine Sodium 86 mmol/L (40-220) Urine Glucose Normal mg/dL (Normal) Urine Total Protein 33.4 mg/dL (1-14) H Microbiology Microbiology Date/Time Source Procedure Growth Status 09/24/24 16:44 Blood Blood Culture - Preliminary NO GROWTH AFTER 72 HOURS OF INCUBATION. Resulted Labs and/or images reviewed: Labs reviewed by me Assessment/Plan Assessment/Plan -Toxic Metabolic encephalopathy -Polysubstance abuse: Amphetamines and PCP -Rhabdomyolysis -Hypertensive urgency Plan: -Continuing had normal saline -continuing Banana Bag -continuing Antihypertensives -continuing PRN Benzodiazepines This medical document was created using an electronic medical record system with [employer] direct computerized dictation system. Although this document has been carefully reviewed, there may still be some phonetic and typographical errors. These areas are purely typographical due to imperfections of the software programs, and do not reflect any compromise in the patient's medical care. Plan discussed with: Patient, Other (Rn) Date of Service: Sep 29, 2024 Billing Provider: VANNESA LUZ MD Common Visit Codes: [id number] INP/OBS CARE(HIGH) VANNESA LUZ MD Sep 29, 2024 12:09
[2024-09-29] MEDS: MAGNESIUM OXIDE 400 MG TAB PO ONE (18:18)
[2024-09-29] MEDS: THIAMINE HCL 100 MG TAB PO ONE (18:18)
[2024-09-29] MEDS: FOLIC ACID 1 MG TAB PO ONE (18:18)
[2024-09-29] MEDS: MULTIPLE VITAMIN TAB PO ONE (18:19)
[2024-09-30] VITALS (8 sets, daily range): BP systolic 99–133; BP diastolic 60–72; PULSE 86–116; RESP 16–20; TEMP 97.6–99.7; O2SAT 95–99
[2024-09-30] MEDS: FOLIC ACID 1 MG TAB PO SCH (10:00)
[2024-09-30] MEDS: THIAMINE HCL 100 MG TAB PO SCH (10:00)
[2024-09-30] MEDS: MULTIPLE VITAMIN TAB PO SCH (10:00)
[2024-09-30] MEDS: MAGNESIUM OXIDE 400 MG TAB PO SCH (10:00)
--- NOTE | 2024-09-30 15:24 | DVHPN2 ---
Reviewed: Care Plan, H&P Changes from previous H/P or p: No Changes General: Per HPI Objective Vitals Vital Signs Date Time Temp Pulse Resp B/P (MAP) Pulse Ox O2 Delivery O2 Flow Rate FiO2 09/30/24 10:00 104/62 09/30/24 09:00 97.6 86 16 96 97.6 09/30/24 08:00 Room Air* 0 21 Intake/Output Intake and Output 09/30/24 07:00 Intake Total 1760 ml Output Total 1700 ml Balance 60 ml Intake Oral 580 ml IV Total 1180 ml Output Urine Total 1700 ml General Appearance: Alert, No acute distress HEENT: Atraumatic, PERRLA Lungs: Clear to auscultation, Normal air movement Cardiovascular: Normal S1, Normal S2 Abdomen: Normal bowel sounds, Soft, No tenderness Genitourinary: No Apparent Abnormalities Musculoskeletal: Normal sensory function, Normal motor function Neuro: Normal gait, Normal speech Psych/Mental Status: Mental status NL, Mood NL Medications Current Medications Medications Dose Ordered Sig/Jeremías Route Start Time Stop Time Status Last Admin Dose Admin Ondansetron HCl 4 mg Q4HP PRN IV 09/24/24 22:45 Enoxaparin Sodium 40 mg DAILY SC 09/25/24 10:00 09/29/24 09:05 40 MG Amlodipine Besylate 10 mg DAILY PO 09/25/24 10:00 09/28/24 08:42 10 MG Lorazepam 1 mg Q4HPRN PRN IV 09/25/24 00:15 09/30/24 01:08 1 MG Hydralazine HCl 10 mg Q6HP PRN IV 09/25/24 10:00 09/28/24 17:48 10 MG Sodium Chloride 1,000 ml @ 100 mls/hr Q10H IV 09/25/24 14:00 09/30/24 06:20 100 MLS/HR Acetaminophen 650 mg Q4HP PRN PO 09/29/24 01:30 09/29/24 01:45 650 MG Folic Acid 1 mg DAILY PO 09/30/24 10:00 Multivitamins 1 tab DAILY PO 09/30/24 10:00 Magnesium Oxide 400 mg DAILY PO 09/30/24 10:00 Thiamine HCl 100 mg DAILY PO 09/30/24 10:00 Laboratory Results Laboratory Tests 09/24/24 15:25 09/26/24 04:39 Urinalysis Test 09/24/24 21:20 Urine Color Yellow (Yellow) Urine Clarity Clear (Clear) Urine pH 5.0 (5.0-9.0) Urine Specific [place] 1.025 (1.001-1.035) Urine Protein Trace (Negative) H Urine Ketones Trace (Negative) Urine Blood Negative /uL (Negative) Urine Nitrite Negative (Negative) Urine Bilirubin Negative (Negative) Urine Urobilinogen Normal mg/dL (Negative) Urine Leukocyte Esterase Negative /uL (Negative) Urine RBC 1 /hpf (0 - 3) Urine Microscopic WBC 1 /HPF (0-3) Urine Squamous Epithelial Cells None seen /hpf (<5) Urine Bacteria None seen /hpf (None Seen) Urine Hyaline Casts Few /lpf (0 - 2) Urine Mucus Few (None Seen) Urine Sperm Present /hpf (None Seen) Urine Creatinine 204.59 mg/dL (30.0-125.0) H Urine Protein/Creatinine Ratio 0.16 Urine Sodium 86 mmol/L (40-220) Urine Glucose Normal mg/dL (Normal) Urine Total Protein 33.4 mg/dL (1-14) H Microbiology Microbiology Date/Time Source Procedure Growth Status 09/24/24 16:44 Blood Blood Culture - Final NO GROWTH AFTER 5 DAYS OF INCUBATION. Complete Labs and/or images reviewed: Labs reviewed by me, Image(s) reviewed by me Assessment/Plan Assessment/Plan Toxic Metabolic encephalopathy -Polysubstance abuse: Amphetamines and PCP -Rhabdomyolysis -Hypertensive urgency 09/30/2024: improving, possible d/c in 24 hours Plan discussed with: Patient Date of Service: Sep 30, 2024 Billing Provider: ESE BUCK DO Common Visit Codes: [id number] INP/OBS CARE(HIGH) ESE BUCK DO Sep 30, 2024 15:24
[2024-09-30] MEDS: SOD CHL 0.45% 1,000 ML IV SCH (15:52)
[2024-10-01] VITALS (9 sets, daily range): BP systolic 92–132; BP diastolic 55–78; PULSE 88–109; RESP 16–18; TEMP 99–100; O2SAT 93–99
[2024-10-01] MEDS ORDERED: AML5T PO (12:44)
--- NOTE | 2024-10-01 12:45 | DVHDS2 ---
Discharge Summary Date of Admission Sep 24, 2024 at 22:35 Date of Discharge: Oct 01, 2024 Labs/Diagnostic Data: Laboratory Results Test 09/26/24 04:39 09/25/24 20:30 09/25/24 06:06 09/24/24 23:00 Sodium Level 145 mmol/L (136-145) Potassium Level 4.0 mmol/L (3.5-5.1) Chloride Level 115 mmol/L (98-107) Carbon Dioxide Level 23 mmol/L (20-31) Anion Gap 7 (5-15) Blood Urea Nitrogen 18 mg/dL (9-23) Creatinine 0.94 mg/dL (0.700-1.30) Glomerular Filtration Rate Calc 92 mL/min (>90) BUN/Creatinine Ratio 19.1 (10.0-20.0) Serum Glucose 75 mg/dL (74-106) Calcium Level 8.4 mg/dL (8.7-10.4) Creatine Kinase 2619 U/L (46-171) Influenza Type A Antigen Negative (Negative) Influenza Type B Antigen Negative (Negative) SARS-CoV-2 Antigen (Rapid) Negative (NEGATIVE) Uric Acid 11.4 mg/dL (3.7-9.2) B-Type Natriuretic Peptide 59.88 pg/mL (0-100) Free Thyroxine (T4) Calculated 1.11 ng/dL (0.89-1.76) Free Triiodothyronine (T3) pg/mL 2.53 pg/mL (2.3-4.2) Prothrombin Time 10.9 sec (9.3-11.8) Prothrombin Time INR 1.03 (0.9-1.15) Activated Partial Thromboplast Time 26.1 SEC (24.5-34.5) Hemoglobin A1c 5.1 % A1C (<5.7) Total Bilirubin 0.6 mg/dL (0.2-1.0) Aspartate Amino Transferase (AST) 43 U/L (13-40) Alanine Aminotransferase (ALT) 32 U/L (7-40) Alkaline Phosphatase 112 U/L (46-116) Ammonia 29 umol/L (11-32) Total Protein 6.9 g/dL (5.7-8.2) Albumin 4.2 g/dL (3.2-4.8) Triglycerides Level 63 mg/dL (< 150) Cholesterol Level 174 mg/dL (< 200) LDL Cholesterol 135 mg/dL (< 100) HDL Cholesterol 32 mg/dL (40-59) Vitamin B12 Level 421 pg/mL (211-911) Vitamin D 25-Hydroxy 22.1 ng/mL (30.0-100) Thyroid Stimulating Hormone (TSH) 0.42 uIU/mL (0.55-4.78) HIV (1&2) Antibody Negative (Negative) Test 09/24/24 21:55 09/24/24 21:20 09/24/24 15:25 09/24/24 15:05 Lactic Acid Level 0.8 mmol/L (0.4-2.0) Urine Color Yellow (Yellow) Urine Clarity Clear (Clear) Urine pH 5.0 (5.0-9.0) Urine Specific [place] 1.025 (1.001-1.035) Urine Protein Trace (Negative) Urine Ketones Trace (Negative) Urine Blood Negative /uL (Negative) Urine Nitrite Negative (Negative) Urine Bilirubin Negative (Negative) Urine Urobilinogen Normal mg/dL (Negative) Urine Leukocyte Esterase Negative /uL (Negative) Urine RBC 1 /hpf (0 - 3) Urine Microscopic WBC 1 /HPF (0-3) Urine Squamous Epithelial Cells None seen /hpf (<5) Urine Bacteria None seen /hpf (None Seen) Urine Hyaline Casts Few /lpf (0 - 2) Urine Mucus Few (None Seen) Urine Sperm Present /hpf (None Seen) Urine Creatinine 204.59 mg/dL (30.0-125.0) Urine Protein/Creatinine Ratio 0.16 Urine Sodium 86 mmol/L (40-220) Urine Glucose Normal mg/dL (Normal) Urine Total Protein 33.4 mg/dL (1-14) Urine Opiates Screen Neg (NEGATIVE) Urine Fentanyl Screen Neg (NEGATIVE) Urine Barbiturates Screen Neg (NEGATIVE) Urine Phencyclidine Screen Pos (NEGATIVE) Urine Amphetamines Screen Pos (NEGATIVE) Urine Benzodiazepines Screen Neg (NEGATIVE) Urine Cocaine Screen Neg (NEGATIVE) Urine Cannabinoids Screen Neg (NEGATIVE) White Blood Count 9.8 10^3/uL (4.4-10.8) Red Blood Count 5.60 10^6/uL (4.5-5.90) Hemoglobin 16.7 g/dL (13.5-17.5) Hematocrit 49.9 % (41.0-53.0) Mean Corpuscular Volume 89.1 fL (80.0-100.0) Mean Corpuscular Hemoglobin 29.9 pg (28.0-32.0) Mean Corpuscular Hemoglobin Concent 33.5 g/dL (32.0-36.0) Red Cell Distribution Width 13.7 % (11.8-14.3) Platelet Count 266 10^3/uL (140-450) Mean Platelet Volume 8.1 fL (6.9-10.8) Neutrophils (%) (Auto) 69.4 % (37.0-80.0) Lymphocytes (%) (Auto) 20.2 % (10.0-50.0) Monocytes (%) (Auto) 8.0 % (0.0-12.0) Eosinophils (%) (Auto) 1.4 % (0.0-7.0) Basophils (%) (Auto) 1.0 % (0.0-2.0) Neutrophils # (Auto) 6.8 10 ^3/uL (1.6-8.6) Lymphocytes # (Auto) 2.0 10 ^3/uL (0.4-5.4) Monocytes # (Auto) 0.8 10 ^3/uL (0-1.3) Eosinophils # (Auto) 0.1 10 ^3/uL (0-0.8) Basophils # (Auto) 0.1 10 ^3/uL (0-0.2) Nucleated Red Blood Cells 0.2 % Troponin I High Sensitivity 16 ng/L (</=54) Plasma/Serum Blood Alcohol 3.8 mg/dL (<10) POC Glucose 121 mg/dl (70-106) Other Laboratory Tests 09/26/24 04:39 09/24/24 15:25 Brief Hx & Hospital Course: This is a 63-year-old old male with past medical history significant of hypertension and multisubstance abuse brought to the hospital due to altered mental status. Per patient's son the patient has been running around the street since yesterday's and has found some PCP with him. Upon ER arrival the patient was aggressive/agitated which was given Ativan but due to uncontrolled agitation the patient was put on physical restrained. Previous hospitalization: The patient was previously admitted on October 2023 due to fentanyl overdose PMHx: Hypertension and polysubstance drug abuse PSHx: Not significant Family history: Not significant Social history: Homeless, smokes marijuana, methamphetamine and PCP Home medication: Amlodipine, trazodone Allergic history: No known allergy -Toxic Metabolic encephalopathy -Polysubstance abuse: Amphetamines and PCP -Rhabdomyolysis -Hypertensive urgency 09/30/2024: improving, possible d/c in 24 hours 10/01/2024: discharged to home Condition at Discharge: Good Final Diagnosis/Problems List see above Discharge Disposition: Home Discharge Instruct/Medications Diet: Cardiac 2g Na,low cholest Activity: No Restrictions, As Tolerated Discharge Statement: "Patient was advised to return to the ER or call 911 if any headaches, dizziness, shortness of breath, chest pain, abdominal pain, bleeding, fevers, or worsening of medical condition. Patient was counseled about treatment plan, medications, possible side effects, patientverbalized understanding. All questions were answered to the best of my ability. This discharge took greater then 30 minutes in planning, reviewing documentation, counseling the patient, and discussing with other team members." ASSESSMENT ASSESSMENT Assessment Date of Service: Oct 01, 2024 Billing Provider: ESE BUCK DO Common Visit Codes: [id number] DISCH DAY >30min ESE BUCK DO Oct 01, 2024 12:45
[2024-10-02 01:00] VITALS: BP 129/74; PULSE 100; RESP 18; TEMP 98.6; O2SAT 99
[2024-10-02 05:00] VITALS: BP 129/74; PULSE 108; RESP 18; TEMP 99.5; O2SAT 94
[2024-10-02 08:00] VITALS: PULSE 90; O2SAT 96
[2024-10-02 09:00] VITALS: BP 117/63; PULSE 94; RESP 18; TEMP 98.1; O2SAT 96
[2024-10-02 13:00] VITALS: BP 114/66; PULSE 94; RESP 18; TEMP 98.1; O2SAT 95
--- NOTE | 2024-10-02 13:09 | DVHPN2 ---
Reviewed: Care Plan, H&P Changes from previous H/P or p: No Changes General: Per HPI Objective Vitals Vital Signs Date Time Temp Pulse Resp B/P (MAP) Pulse Ox O2 Delivery O2 Flow Rate FiO2 10/02/24 09:08 117/63 10/02/24 09:00 98.1 94 18 96 98.1 10/02/24 08:00 Room Air* 0 21 Intake/Output Intake and Output 10/02/24 07:00 Intake Total 800 ml Output Total 1900 ml Balance -1100 ml Intake Oral 500 ml IV Total 300 ml Output Urine Total 1900 ml General Appearance: Alert, Cooperative, No acute distress HEENT: Atraumatic, PERRLA Lungs: Clear to auscultation, Normal air movement Cardiovascular: Normal S1, Normal S2 Abdomen: Normal bowel sounds, Soft, No tenderness Genitourinary: No Apparent Abnormalities Musculoskeletal: Normal sensory function, Normal motor function Neuro: Normal gait, Normal speech Psych/Mental Status: Mental status NL, Mood NL Medications Current Medications Medications Dose Ordered Sig/Jeremías Route Start Time Stop Time Status Last Admin Dose Admin Ondansetron HCl 4 mg Q4HP PRN IV 09/24/24 22:45 Enoxaparin Sodium 40 mg DAILY SC 09/25/24 10:00 10/02/24 09:07 40 MG Amlodipine Besylate 10 mg DAILY PO 09/25/24 10:00 10/02/24 09:08 10 MG Lorazepam 1 mg Q4HPRN PRN IV 09/25/24 00:15 09/30/24 01:08 1 MG Hydralazine HCl 10 mg Q6HP PRN IV 09/25/24 10:00 09/28/24 17:48 10 MG Acetaminophen 650 mg Q4HP PRN PO 09/29/24 01:30 09/29/24 01:45 650 MG Folic Acid 1 mg DAILY PO 09/30/24 10:00 10/02/24 09:07 1 MG Multivitamins 1 tab DAILY PO 09/30/24 10:00 10/02/24 09:06 1 TAB Magnesium Oxide 400 mg DAILY PO 09/30/24 10:00 10/02/24 09:06 400 MG Thiamine HCl 100 mg DAILY PO 09/30/24 10:00 10/02/24 09:07 100 MG Sodium Chloride 1,000 ml @ 150 mls/hr Q6H40M IV 09/30/24 15:30 10/01/24 21:06 150 MLS/HR Laboratory Results Laboratory Tests 09/24/24 15:25 09/26/24 04:39 Urinalysis Test 09/24/24 21:20 Urine Color Yellow (Yellow) Urine Clarity Clear (Clear) Urine pH 5.0 (5.0-9.0) Urine Specific [place] 1.025 (1.001-1.035) Urine Protein Trace (Negative) H Urine Ketones Trace (Negative) Urine Blood Negative /uL (Negative) Urine Nitrite Negative (Negative) Urine Bilirubin Negative (Negative) Urine Urobilinogen Normal mg/dL (Negative) Urine Leukocyte Esterase Negative /uL (Negative) Urine RBC 1 /hpf (0 - 3) Urine Microscopic WBC 1 /HPF (0-3) Urine Squamous Epithelial Cells None seen /hpf (<5) Urine Bacteria None seen /hpf (None Seen) Urine Hyaline Casts Few /lpf (0 - 2) Urine Mucus Few (None Seen) Urine Sperm Present /hpf (None Seen) Urine Creatinine 204.59 mg/dL (30.0-125.0) H Urine Protein/Creatinine Ratio 0.16 Urine Sodium 86 mmol/L (40-220) Urine Glucose Normal mg/dL (Normal) Urine Total Protein 33.4 mg/dL (1-14) H Microbiology Microbiology Date/Time Source Procedure Growth Status 09/24/24 16:44 Blood Blood Culture - Final NO GROWTH AFTER 5 DAYS OF INCUBATION. 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
[2024-10-02 13:12] VITALS: BP 117/63; PULSE 105
== END 2024-10-02 15:05 | disposition home health service (06) | DRG 52 ==
LOC: ER 14:57 → OVERFLOW 22:35 → TELE-WESTW 09-25 23:52
PROVIDERS: ADMIT Internal Medicine; ATTEND Internal Medicine
DX: G92.8 Other toxic encephalopathy (principal); R65.11 Systemic inflammatory response syndrome (SIRS) of non-infectious origin with acute organ dysfunction; N17.0 Acute kidney failure with tubular necrosis; M62.82 Rhabdomyolysis; F19.10 Other psychoactive substance abuse, uncomplicated; I16.0 Hypertensive urgency; Z59.00 Homelessness unspecified; Z79.899 Other long term (current) drug therapy; Y90.0 Blood alcohol level of less than 20 mg/100 ml
CPT/HCPCS: 36415; 70450; 71045; 80048; 80053; 80061; 80307; 80320; 81001; 82140; 82306; 82550; 82570; 82607; 82962; 83036; 83605; 83880; 84156; 84300; 84439; 84443; 84481; 84484; 84550; 85025; 85610; 85730; 86703; 87040; 87426; 87804; 93005; 93306; 96365; 96372; 96375; 97110; 97116; 97163; 97530; 99291; 99292; G0378; J0131

== ENCOUNTER 2024-10-07 02:27 | Emergency (ER) | payer MEDICAID ==
[~2024-10-07] VITALS: Ht 160 cm; Wt 69.2 kg
[~2024-10-07 02:27] MED LIST: AML5T PO
[2024-10-07 02:49] VITALS: BP 144/97; PULSE 110; RESP 16; TEMP 98.6; O2SAT 96
--- NOTE | 2024-10-07 03:53 | ED.PDOC ---
Back pain HPI HPI Comments C/C: ALL OVER BODY DISCOMFORT. PATIENT STATES THAT HE WAS HERE WITHIN THE LAST 2 WEEKS DUE TO HAVING A BUCKET OF PCP FALL ON HIM. PATIENT STATES THAT HE IS HERE TO MAKE SURE THAT HE IS OK. HR: 110, ALL OTHER VSS. PATIENT STATES THAT HE DOES USE DRUGS Chief Complaint: Body Pain Time Seen by MD: 02:55 Primary Care Provider: NONE Reviewed Notes: Nurses Notes, Medications, Allergies Allergies: Coded Allergies: NO KNOWN ALLERGIES (Unverified , 10/13/23) Home Meds Active Scripts Amlodipine Besylate (NORVASC TABLET) 5 Mg Tb, 10 MG PO DAILY for 30 Days, #60 TAB 3 Refills Prov:ESE BUCK DO 10/01/24 Information Source: Patient Mode of Arrival: Wheelchair Past Medical History PAST MEDICAL HISTORY: HTN Surgical History: Denies all surgeries Family History Family History: Reviewed,noncontributory to illness, Unknown Social History Smoker: Non-Smoker Alcohol: Denies ETOH Use Drugs: Marijuana, Methamphetamine, Other Lives In: Homeless Constitutional: denies: chills, diaphoresis, fatigue, fever, malaise, sweats, weakness, others EENTM: denies: blurred vision, double vision, ear bleeding, ear discharge, ear drainage, ear pain, ear ringing, eye pain, eye redness, hearing loss, mouth pain, mouth swelling, nasal discharge, nose bleeding, nose congestion, nose pain, photophobia, tearing, throat pain, throat swelling, voice changes, others Respiratory: denies: cough, hemoptysis, orthopnea, SOB at rest, shortness of breath, SOB with excertion, stridor, wheezing, others Cardiovascular: denies: chest pain, dizzy spells, diaphoresis, Dyspnea on exertion, edema, irregular heart beat, left arm pain, lightheadedness, palpitations, PND, syncope, others Gastrointestinal: denies: abdomen distended, abdominal pain, blood streaked bowels, constipated, diarrhea, dysphagia, difficulty swallowing, hematemesis, melena, nausea, poor appetite, poor fluid intake, rectal bleeding, rectal pain, vomiting, others Genitourinary: denies: burning, dysuria, flank pain, frequency, hematuria, incontinence, penile discharge, penile sore, pain, testicle pain, testicle swelling, urgency, others Neurological: denies: dizziness, fainting, headache, left sided numbness, left sided weakness, numbness, paresthesia, pre-existing deficit, right sided numbness, right sided weakness, seizure, speech problems, tingling, tremors, weakness, others Musculoskeletal: reports: others (BILATERAL HAND AND FEET PAIN); denies: back pain, gout, joint pain, joint swelling, muscle pain, muscle stiffness, neck pain Integumetry: denies: bruises, change in color, change in hair/nails, dryness, laceration, lesions, lumps, rash, wounds, others Allergic/Immunocompromised: denies: Difficulty Healing, Frequent Infections, Hives, Itching, others Hematologic/Lymphatic: denies: anemia, blood clots, easy bleeding, easy bruising, swollen glands, others Endocrine: denies: excessive hunger, excessive sweating, excessive thirst, excessive urination, flushing, intolerance to cold, intolerance to heat, unexplained weight gain, unexplained weight loss, others Psychiatric: denies: anxiety, bipolar disorder, depression, hopeless, panic disorder, schizophrenia, sleepless, suicidal, others Physical Exam General Appearance: No Apparent Distress, Normal HEENT: Normal ENT Inspection, Pharynx Normal, TMs Normal Neck: Full Range of Motion, Non-Tender, Normal, Normal Inspection Respiratory: Chest Non-Tender, Lungs Clear, No Accessory Muscle Use, No Respiratory Distress, Normal Breath Sounds Cardiovascular: No Edema, No JVD, No Murmur, No Gallop, Normal Peripheral Pulses, Regular Rate/Rhythm Breast Exam: Deferred Gastrointestinal: No Organomegaly, Non Tender, No Pulsatile Mass, Normal Bowel Sounds, Soft Genitalia: Deferred Pelvic: Deferred Rectal: Deferred Extremities: Normal capillary refill, Normal inspection, Normal range of motion, Non-tender, No pedal edema Musculoskeletal : Apperance: Normal Neurologic: Alert, medtronics technician II-XII nml as Tested, No Motor Deficits, Normal Affect, Normal Mood, No Sensory Deficits Cerebellar Function: Normal Reflexes: Normal Skin: Dry, Normal Color, Warm Lymphatic: No Adenopathy Was a procedure done? Was a procedure done?: No Back Pain Differential Dx Differential Diagnosis: Fracture, Musculoskeletal Pain X-Ray, Labs, Meds, VS Vital Signs Date Time Temp Pulse Resp B/P (MAP) Pulse Ox O2 Delivery O2 Flow Rate FiO2 10/07/24 02:49 98.6 110 16 144/97 (439) 96 98.6 X-Ray, Labs, Meds, VS Comment LIKELY SECONDARY TO THE COLD PATIENT DOES STATE HE WAS HOMELESS. PATIENT GIVEN NORCO 5 MG AND IBUPROFEN 600 MG HE REPORTS IMPROVEMENT IN PAIN AND FUNCTION REQUESTING DISCHARGE AT THIS TIME. ADVISED TO FOLLOW UP WITH HIS PCP IN 1-2 DAYS OR URGENT CARE OR BACK HERE IN THE ER NECESSARY ER RETURN PRECAUTIONS GIVEN PATIENT INDICATES Time of 1ST Reevaluation: 03:52 Reevaluation 1ST: Improved Patient Education/Counseling: Diagnosis, Treatment, Prognosis, Need For Follow Up Family Education/Counseling: Diagnosis, Treatment, Prognosis, Need For Follow Up Departure 1 Departure Time of Disposition: 03:52 Impression: Primary Impression: Hand and foot pain Qualified Codes: M79.641 - Pain in right hand; M79.671 - Pain in right foot Disposition: 01 HOME / SELF CARE / HOMELESS Condition: Stable Discharged With: Relative Critical Care Note Critical Care Time?: No Stability Stability form required: GADIEL Mendoza Oct 07, 2024 03:53
[2024-10-07] MEDS ORDERED: IBUPROFEN 600 MG TAB PO ONE (04:00)
[2024-10-07] MEDS ORDERED: HYDROcodone-ACET 5/325MG TAB PO ONE (04:00)
== END 2024-10-07 03:53 | disposition home or self-care (01) ==
LOC: ER 02:27
DX: M79.641 Pain in right hand (principal); M79.642 Pain in left hand; M79.671 Pain in right foot; M79.672 Pain in left foot; F12.90 Cannabis use, unspecified, uncomplicated; F15.90 Other stimulant use, unspecified, uncomplicated; F19.90 Other psychoactive substance use, unspecified, uncomplicated; I10 Essential (primary) hypertension; Z79.899 Other long term (current) drug therapy; Z59.00 Homelessness unspecified